=== PATIENT | female | born 1965 ===

== ENCOUNTER 2024-11-16 06:30 | Day surgery (SDC) | payer OTHER ==
[2024-11-10 09:22] LABS: HEMATOCRIT 37.7 % (36.0-45.00); MEAN CELL VOLUME 86.8 fL (80.00-100.00); MEAN CORPUSCULAR HGB CONC 34.5 g/dl (32.0-36.0); PLATELET COUNT 259 K/uL (150-450); RED BLOOD COUNT 4.34 M/uL (4.00-6.00); RED CELL DISTRIBUTION WIDTH 14.2 % (11.5-14.5)
[2024-11-10 09:47] LABS: PARTIAL THROMBOPLASTIN TIME 28.2 SECONDS (22.0-34.0)
[2024-11-10 09:55] VITALS: BP 149/90
[2024-11-10 10:16] LABS: ALBUMIN 3.9 gm/dL (3.4-5.0); BILIRUBIN TOTAL 1.55 mg/dL (0.3-1.2); CALCIUM 9.9 mg/dL (8.5-10.1); CREATININE SERUM 0.7 mg/dL (0.55-1.02); GFR 85.94; POTASSIUM 3.62 mEq/L (3.5-5.1); TOTAL PROTEIN 7.9 gm/dL (6.4-8.2); TSH 2.86 uIU/mL (0.358-3.74)
[2024-11-10 10:18] LABS: PH,URINE 6.5 (5.0-8.0); URINE APPEARANCE Clear; URINE BILIRRUBIN Negative (NEGATIVE); URINE BLOOD Small; URINE COLOR Yellow; URINE GLUCOSE Negative (NEGATIVE); URINE KETONE Negative (NEGATIVE); URINE LEUKOCYTE Negative; URINE NITRATE Negative; URINE PROTEIN Negative (NEGATIVE)
[2024-11-10 10:19] LABS: URINE RBC 34.6 uL (0.0-20.8); URINE WBC 1.8 uL (0.0-23.2)
[2024-11-10 10:26] LABS: PROTHROMBIN TIME 10.9 SECONDS (9.0-11.5)
[~2024-11-16] VITALS: Ht 172.7 cm; Wt 90.7 kg
[~2024-11-16 06:30] MED LIST: ARMOUR THYROID60 M1 PO; BENICAR20 MG PO; BUSPIRONE HCL30 MG PO; CLONAZEPAM0.5 MG PO; DIOVAN HCT 320/1 TAB PO; GRALISE600 MG PO; HYDROCHLOROTHIA25 MG PO; KLOR-CON 1010 MEQ PO; LEXAPRO5 MG PO; LIPITOR20 MG PO; NEURIN SL; NORVASC5 MG PO; PEPCID40 MG PO; PERCOCET 5/3251 TAB PO; POLY119PG PO; ROSUVASTATIN CA10 MG PO; SPIRONOLACTONE25 MG PO; SYNTHROID112 MCG PO; ZOFRAN ODT4 MG/UDTAB PO; [UNRECOGNIZED DRUG - OTHER] PO; [UNRECOGNIZED DRUG - OTHER] PO; [UNRECOGNIZED DRUG - OTHER] PO
[2024-11-16] MEDS ORDERED: CEFAZOLIN SODIUM 1,000 MG VIAL ONE ×2 (12:42→16:02)
[2024-11-16] MEDS ORDERED: CHLORHEXIDINE GLUCONATE 120 ML BOTTLE TOP ONE (12:43)
[2024-11-16] MEDS ORDERED: CEFAZOLIN SODIUM 1,000 MG VIAL IV SCH (14:45)
[2024-11-16] MEDS ORDERED: FAMOTIDINE/PF 20 MG/10 ML SYRINGE IV SCH (14:45)
[2024-11-16] MEDS ORDERED: FAMOTIDINE/PF 20 MG/2 ML VIAL ONE (16:03)
== END 2024-11-16 17:30 | disposition home or self-care (01) ==
LOC: CIR.AMB 06:30
PROVIDERS: ATTEND Specialist
DX: D24.1 Benign neoplasm of right breast (principal); D24.2 Benign neoplasm of left breast; R92.1 Mammographic calcification found on diagnostic imaging of breast; E03.8 Other specified hypothyroidism; D48.61 Neoplasm of uncertain behavior of right breast; D48.62 Neoplasm of uncertain behavior of left breast; I10 Essential (primary) hypertension